=== PATIENT | male | born 1955 | race Asian ===

== ENCOUNTER 2017-05-27 08:01 | Emergency (ER) | payer MEDICARE, MEDICAID ==
[~2017-05-27] VITALS: Ht 175.3 cm; Wt 72.7 kg
[~2017-05-27 08:01] MED LIST: EZET10 PO; METO25 PO; OMEG1CAP12 PO; TAMS0.4C32 PO
[2017-05-27] MEDS ORDERED: CILO2.5OS OD (08:11)
[2017-05-27] MEDS ORDERED: PREDAOS OD (08:11)
[2017-05-27] MEDS ORDERED: DICL2.5D8 OD (08:11)
[2017-05-27] MEDS ORDERED: FENO160 PO (08:11)
[2017-05-27] MEDS ORDERED: BENA20 PO (08:11)
[2017-05-27 08:30] VITALS: BP 162/99
[2017-05-27] MEDS ORDERED: PROPARACAINE HCL 0.5% 15 ML OPHTHALMIC SOLUTION OD ONE (09:00)
== END 2017-05-27 09:15 | disposition home or self-care (01) ==
LOC: EMS 08:03
DX: B30.9 Viral conjunctivitis, unspecified (principal); I10 Essential (primary) hypertension; I25.10 Atherosclerotic heart disease of native coronary artery without angina pectoris; N40.0 Benign prostatic hyperplasia without lower urinary tract symptoms; Z95.1 Presence of aortocoronary bypass graft; Z95.5 Presence of coronary angioplasty implant and graft
CPT/HCPCS: 99283

== ENCOUNTER 2018-02-22 14:51 | Emergency (ER) | payer MEDICARE, MEDICAID ==
[~2018-02-22] VITALS: Ht 175.3 cm; Wt 72.3 kg
[~2018-02-22 14:51] MED LIST changes: +BENA20 PO; +CILO2.5OS OD; +DICL2.5D8 OD; -EZET10 PO; +FENO160 PO; +PREDAOS OD; -TAMS0.4C32 PO
[2018-02-22 15:57] VITALS: BP 140/82
[2018-02-22] MEDS ORDERED: MAGNESIUM CITRATE 300 ML ORAL SOLUTION PO ONE (16:00)
== END 2018-02-22 16:23 | disposition home or self-care (01) ==
LOC: EMS 14:52
DX: K59.00 Constipation, unspecified (principal); N32.0 Bladder-neck obstruction; I11.9 Hypertensive heart disease without heart failure; I25.10 Atherosclerotic heart disease of native coronary artery without angina pectoris; Z95.1 Presence of aortocoronary bypass graft

== ENCOUNTER 2018-02-22 18:04 | Emergency (ER) | payer MEDICARE, MEDICAID ==
[~2018-02-22] VITALS: Ht 175.3 cm; Wt 72.3 kg
[2018-02-22 23:12] VITALS: BP 127/76
== END 2018-02-22 23:16 | disposition home or self-care (01) ==
LOC: EMS 18:05
DX: T83.091A Other mechanical complication of indwelling urethral catheter, initial encounter (principal); R33.9 Retention of urine, unspecified; I10 Essential (primary) hypertension; I25.10 Atherosclerotic heart disease of native coronary artery without angina pectoris

== ENCOUNTER 2020-09-18 07:11 | Emergency (ER) | payer MEDICARE, MEDICAID ==
[~2020-09-18] VITALS: Ht 172.7 cm; Wt 74.0 kg
[~2020-09-18 07:11] MED LIST changes: -BENA20 PO; +BENA20TA11 PO; -FENO160 PO; +FENO160T14 PO
[2020-09-18 07:16] VITALS: BP 172/92
[2020-09-18] MEDS ORDERED: DOXYCYCLINE HYCLATE 100 MG TABLET PO ONE (07:30)
[2020-09-18] MEDS ORDERED: IBUPROFEN 600 MG TABLET PO ONE (07:45)
[2020-09-18 08:45] LABS: GLUCOSE,POINT OF CARE 198 MG/DL (70-110)
== END 2020-09-18 08:17 | disposition home or self-care (01) ==
LOC: EMS 07:14
DX: L03.116 Cellulitis of left lower limb (principal); I25.10 Atherosclerotic heart disease of native coronary artery without angina pectoris; I11.9 Hypertensive heart disease without heart failure
CPT/HCPCS: 82962; 99283

== ENCOUNTER 2021-05-28 07:09 | Emergency (ER) | payer MEDICARE, MEDICAID ==
[~2021-05-28] VITALS: Ht 172.7 cm; Wt 72.7 kg
[~2021-05-28 07:09] MED LIST changes: -BENA20TA11 PO; +BENA20TA83 PO
[2021-05-28 07:11] VITALS: BP 167/74
[2021-05-28] MEDS ORDERED: CORTSOL AU (15:37)
[2021-05-28] MEDS ORDERED: HYDR30CR39 TP (15:37)
== END 2021-05-28 07:55 | disposition home or self-care (01) ==
LOC: EMS 07:17
DX: H60.91 Unspecified otitis externa, right ear (principal); I10 Essential (primary) hypertension; Z79.899 Other long term (current) drug therapy
CPT/HCPCS: 99283

== ENCOUNTER 2021-07-09 07:18 | Emergency (ER) | payer MEDICARE, MEDICAID ==
[~2021-07-09] VITALS: Ht 170.2 cm; Wt 72.7 kg
[~2021-07-09 07:18] MED LIST changes: -CILO2.5OS OD; +CIPR2.5D17 OD; +CORTSOL AU; -FENO160T14 PO; +FENO160T75 PO; +HYDR30CR39 TP
[2021-07-09] MEDS ORDERED: ROSU20TA73 PO (07:31)
[2021-07-09] MEDS ORDERED: AMLO-257 PO (07:31)
[2021-07-09] MEDS ORDERED: METF-1211 PO (07:31)
[2021-07-09 08:56] VITALS: BP 127/83
[2021-07-09] MEDS ORDERED: DOCUSATE SODIUM 100 MG/10 ML LIQUID UDCUP TP ONE (09:00)
[2021-07-09] MEDS ORDERED: AMOX500C2 PO (10:10)
== END 2021-07-09 10:19 | disposition home or self-care (01) ==
LOC: EMS 07:21
DX: H61.21 Impacted cerumen, right ear (principal); I10 Essential (primary) hypertension; E78.00 Pure hypercholesterolemia, unspecified; Z79.84 Long term (current) use of oral hypoglycemic drugs; Z79.899 Other long term (current) drug therapy
CPT/HCPCS: 69209; 82962; 99282

== ENCOUNTER 2021-07-12 21:37 | Emergency (ER) | payer MEDICARE, MEDICAID ==
[~2021-07-12] VITALS: Ht 170.2 cm; Wt 72.0 kg
[~2021-07-12 21:37] MED LIST changes: +AMLO-257 PO; +AMOX500C2 PO; -CIPR2.5D17 OD; -CORTSOL AU; -FENO160T75 PO; -HYDR30CR39 TP; +METF-1211 PO; -PREDAOS OD; +ROSU20TA73 PO
[2021-07-12 21:44] VITALS: BP 138/80
[2021-07-12] MEDS ORDERED: CORTSUSP AD (22:37)
== END 2021-07-12 22:50 | disposition home or self-care (01) ==
LOC: EMS 21:38
DX: H60.91 Unspecified otitis externa, right ear (principal); I25.10 Atherosclerotic heart disease of native coronary artery without angina pectoris; E78.00 Pure hypercholesterolemia, unspecified; I11.9 Hypertensive heart disease without heart failure; Z79.84 Long term (current) use of oral hypoglycemic drugs
CPT/HCPCS: 99281; Z7502

== ENCOUNTER 2021-12-27 08:00 | Emergency (ER) | payer MEDICARE, MEDICAID ==
[~2021-12-27] VITALS: Ht 172.7 cm; Wt 68.2 kg
[~2021-12-27 08:00] MED LIST changes: +CORTSUSP AD
[2021-12-27 10:50] VITALS: BP 146/81
== END 2021-12-27 11:08 | disposition left against medical advice (07) ==
LOC: EMS 08:05
DX: H92.02 Otalgia, left ear (principal); Z53.21 Procedure and treatment not carried out due to patient leaving prior to being seen by health care provider

== ENCOUNTER 2021-12-31 06:47 | Emergency (ER) | payer MEDICARE, MEDICAID ==
[~2021-12-31] VITALS: Ht 172.7 cm; Wt 68.0 kg
[2021-12-31 06:51] VITALS: BP 150/72
[2021-12-31] MEDS ORDERED: CIPOTIC AD (09:02)
== END 2021-12-31 09:27 | disposition home or self-care (01) ==
LOC: EMS 06:47
DX: H60.91 Unspecified otitis externa, right ear (principal); H61.22 Impacted cerumen, left ear; I25.10 Atherosclerotic heart disease of native coronary artery without angina pectoris; E11.9 Type 2 diabetes mellitus without complications; E78.00 Pure hypercholesterolemia, unspecified; I10 Essential (primary) hypertension; N40.0 Benign prostatic hyperplasia without lower urinary tract symptoms; Z95.1 Presence of aortocoronary bypass graft; Z98.890 Other specified postprocedural states
CPT/HCPCS: 99283

== ENCOUNTER 2023-05-30 13:15 | Emergency (ER) | payer MEDICARE, MEDICAID ==
[~2023-05-30] VITALS: Ht 165.1 cm; Wt 77.3 kg
[~2023-05-30 13:15] MED LIST changes: +BENA-18 PO; -BENA20TA83 PO; +CIPOTIC AD; +DICL2.5D7 OD; -DICL2.5D8 OD
[2023-05-30 13:38] LABS: COVID AG,FIA SOURCE NASAL SWAB
[2023-05-30 13:51] LABS: SARS-COV2 (COVID) ANTIGEN,FIA Negative (Negative)
[2023-05-30 13:52] LABS: RAPID GROUP A STREP NEGATIVE (NEGATIVE)
[2023-05-30 14:02] LABS: INFLUENZA TYPE A NEGATIVE FOR TYPE A (NEGATIVE); INFLUENZA TYPE B NEGATIVE FOR TYPE B (NEGATIVE)
[2023-05-30] MEDS ORDERED: BENZ-227 PO (14:17)
[2023-05-30] MEDS: BENZONATATE 100 MG CAPSULE PO ONE (14:36)
[2023-05-30 14:41] VITALS: BP 123/67; PULSE 82; RESP 18; TEMP 98
== END 2023-05-30 14:44 | disposition home or self-care (01) ==
LOC: EMS 13:15
DX: R05.9 Cough, unspecified (principal); E11.9 Type 2 diabetes mellitus without complications; E78.00 Pure hypercholesterolemia, unspecified; N40.0 Benign prostatic hyperplasia without lower urinary tract symptoms; I25.10 Atherosclerotic heart disease of native coronary artery without angina pectoris; I11.9 Hypertensive heart disease without heart failure; Z98.890 Other specified postprocedural states; Z20.822 Contact with and (suspected) exposure to COVID-19
CPT/HCPCS: 71046; 82962; 87430; 87804; 99284

== ENCOUNTER 2023-10-18 20:11 | Emergency (ER) | payer MEDICARE, MEDICAID ==
[~2023-10-18] VITALS: Ht 167.6 cm; Wt 63.6 kg
[~2023-10-18 20:11] MED LIST changes: -AMOX500C2 PO; +BENZ-227 PO; -CIPOTIC AD; -CORTSUSP AD
[2023-10-18 21:26] LABS: APPEARANCE,URINE CLEAR (CLEAR); BILIRUBIN,URINE NEGATIVE (NEGATIVE); COLOR,URINE COLORLESS (YELLOW); GLUCOSE, URINE (UA) >=1000 mg/dL (NEGATIVE); KETONES,URINE NEGATIVE (NEGATIVE); LEUKOCYTE ESTERASE ,URINE MODERATE (NEGATIVE); NITRATE,URINE NEGATIVE (NEGATIVE); OCCULT BLOOD,URINE LARGE (NEGATIVE); PH,URINE 6.5 (5.0-8.0); PROTEIN,URINE 30-70 mg/dL (NEGATIVE); SPECIFIC GRAVITIY, URINE 1.012 (1.003-1.030); UROBILINOGEN,URINE <=1.0 mg/dL (<=1.0)
[2023-10-18 21:48] LABS: BACTERIA,URINE Moderate /HPF (None Seen); SQUAMOUS EPITHELIAL CELL,UR Rare /LPF (None Seen); YEAST,URINE None Seen /HPF (None Seen)
[2023-10-18] MEDS ORDERED: CEPH-558 PO (22:11)
[2023-10-18] MEDS: CEPHALEXIN MONOHYDRATE 500 MG CAPSULE PO ONE (22:32)
[2023-10-18 22:34] VITALS: BP 124/67; PULSE 71; RESP 15; TEMP 97.9
== END 2023-10-18 22:40 | disposition home or self-care (01) ==
LOC: EMS 20:22
DX: T85.9XXA Unspecified complication of internal prosthetic device, implant and graft, initial encounter (principal); E11.9 Type 2 diabetes mellitus without complications; E78.00 Pure hypercholesterolemia, unspecified; I25.10 Atherosclerotic heart disease of native coronary artery without angina pectoris; I11.9 Hypertensive heart disease without heart failure; Z98.890 Other specified postprocedural states
CPT/HCPCS: 81001; 87086; 87186; 99283

== ENCOUNTER 2023-10-23 16:43 | Emergency (ER) | payer MEDICARE, MEDICAID ==
[~2023-10-23] VITALS: Ht 172.7 cm; Wt 55.0 kg
[~2023-10-23 16:43] MED LIST changes: -AMLO-257 PO; -BENA-18 PO; -BENZ-227 PO; +CEPH-558 PO; -DICL2.5D7 OD
[2023-10-23 16:55] VITALS: BP 134/66; PULSE 79; RESP 20; TEMP 99
[2023-10-23 17:11] LABS: GLUCOMETER DEV NAME(LOC) ER.7; GLUCOSE,POINT OF CARE 120 MG/DL (70-110)
[2023-10-23] MEDS ORDERED: BENA40TA92 PO (18:29)
[2023-10-23] MEDS ORDERED: EMPA10TA3 PO (18:29)
[2023-10-23] MEDS ORDERED: GABA-1181 PO (18:29)
[2023-10-23] MEDS ORDERED: METO-416 PO (18:29)
[2023-10-23] MEDS ORDERED: ICOS1CAP2 PO (18:29)
[2023-10-23] MEDS: SODIUM PHOSPHATE,MONO-DIBASIC 133 ML ENEMA PR ONE (18:40)
== END 2023-10-23 19:01 | disposition home or self-care (01) ==
LOC: EMS 16:45
DX: K59.00 Constipation, unspecified (principal); E11.9 Type 2 diabetes mellitus without complications; I10 Essential (primary) hypertension
CPT/HCPCS: 74018; 82962; 99284